=== PATIENT | female | born 1960 | race Caucasian/White ===

== ENCOUNTER 2021-07-17 22:10 | Inpatient (IN) ==
[2021-07-17] MEDS ORDERED: 0.9 % Sodium Chloride 1,000 ML IVC ONE (23:26)
[2021-07-18] MEDS ORDERED: Morphine Sulfate 2 MG/ML SYRINGE SQ ONE ×3 (02:40→06:55)
[2021-07-18] MEDS ORDERED: Lidocaine -MPF 2% 5 ML VIAL ONE (03:58)
[2021-07-18] MEDS ORDERED: 0.9 % Sodium Chloride 1,000 ML ONE ×2 (04:40→12:33)
[2021-07-18 04:43] LABS: Alanine Aminotransferase 17 Units/L (7-52); Albumin 3.4 g/dL (3.5-5.7); Albumin/Globulin Ratio 0.8 (1.1-2.2); Alkaline Phosphatase 131 Units/L (34-104); Aspartate Amino Transferase 25 Units/L (13-39); BUN/Creatinine Ratio 18 (6-26); Bilirubin,Direct 0.1 mg/dL (0.0-0.2); Bilirubin,Indirect 0.5 mg/dL (0.0-1.0); Bilirubin,Total 0.6 mg/dL (0.3-1.0); Blood Urea Nitrogen 15 mg/dL (6-20); Calcium 9.6 mg/dL (8.6-10.3); Carbon Dioxide 23 mEq/L (23-29); Chloride 103 mEq/L (98-107); Globulin 4.3 g/dL (2.4-3.5); Glucose 118 mg/dL (70-105); Osmolality,Calculated 284 (280-300); Potassium 3.8 mEq/L (3.5-5.1); Sodium 136 mEq/L (136-145); Total Protein 7.7 g/dL (6.4-8.9); eGFR For African Americans > 60 (> 60); eGFR For Non-African Americans > 60 (> 60)
[2021-07-18 05:05] LABS: Eosinophils % 0.6 %; Immature Granulocytes % 0.4 % (0-4)
[2021-07-18 05:07] LABS: Basophils # 0.1 K/mcL (0.0-0.2); Basophils % 0.6 %; Eosinophils # 0.1 K/mcL (0.0-0.6); Hematocrit 46.3 % (35.3-44.9); Hemoglobin 14.2 g/dL (11.5-15.4); Immature Platelets 8.5 % (1.1-6.1); Lymphocytes # 2.6 K/mcL (0.6-4.6); Lymphocytes % 18.4 %; Mean Corpuscular HGB Conc 30.7 g/dL (31.6-35.5); Mean Corpuscular Hemoglobin 23.9 pg (28.0-33.3); Mean Corpuscular Volume 77.8 fL (83.0-100.0); Mean Platelet Volume 12.8 fL (9.4-12.4); Monocytes # 1.2 K/mcL (0.0-1.3); Monocytes % 8.6 %; Platelet Count 212 K/mcL (140-400); Red Blood Count 5.95 M/mcL (3.82-4.97); Segmented Neutrophils % 71.4 %
[2021-07-18] MEDS ORDERED: Ondansetron 4 MG/2 ML VIAL IM ONE (06:05)
[2021-07-18] MEDS ORDERED: Clindamycin 600 MG/50 ML 600 MG/50 ML IV.SOLN IVPB STA (08:07)
[2021-07-18] MEDS ORDERED: Acetaminophen 325 MG TABLET PO PRN (08:50)
[2021-07-18] MEDS ORDERED: Naloxone 0.4 MG/ML INJ IVP PRN (08:50)
[2021-07-18] MEDS ORDERED: Ringers Solution, Lactated 1,000 ML IVC SCH ×2 (09:00→11:30)
[2021-07-18 10:12] LABS: Influenza A PCR Negative (Negative); Influenza B PCR Negative (Negative); Resp. Syncytial Virus PCR Negative (Negative); SARS-CoV-2 by PCR (In House) Negative (Negative)
[2021-07-18] MEDS ORDERED: Vancomycin 1,500 MG/265 ML IV.SOLN IVPB SCH (12:00)
[2021-07-18] MEDS: Chlorhexidine Rinse 15 ML MOUTHWASH MM SCH ×2 (12:35→19:24)
[2021-07-18] MEDS: *HR* OxyCODONE Immed Rel 5 MG TABLET PO PRN ×2 (12:35→19:42)
[2021-07-18] MEDS: Lactobacillus 1 EACH CAP.SPRINK PO SCH ×2 (12:35→19:24)
[2021-07-18] MEDS ORDERED: Vancomycin 1,750 MG/517.5 ML IV.SOLN IVPB SCH (13:00)
[2021-07-18] MEDS: Piperacillin/Tazobactam 3.375 GM in 0.9 % Sodium Chloride Mini Bag 100 ML IVPB SCH ×2 (13:03→19:22)
[2021-07-18] MEDS: 0.9 % Sodium Chloride 1,000 ML IVC SCH ×2 (13:04→22:47)
[2021-07-18] MEDS: *HR* Promethazine 25 MG/ML VIAL IM PRN (13:07)
[2021-07-18] MEDS: Vancomycin 1,750 MG/517.5 ML IV.SOLN IVPB SCH (14:20)
[2021-07-18] MEDS: *HR* HYDROcodone/Acet 5/325 mg TABLET PO PRN (15:40)
[2021-07-18] MEDS: Ipratropium/Albuterol Neb 3 ML IH SCH ×2 (15:56→21:03)
[2021-07-18] MEDS: Ondansetron 4 MG/2 ML VIAL IVP PRN (19:43)
[2021-07-18] MEDS: *HR* Enoxaparin 40 MG/0.4 ML SYRINGE SQ SCH (20:38)
[2021-07-18] MEDS: Budesonide/Formoterol 80/4.5 1 PUFF INH IH SCH (21:05)
[2021-07-19] MEDS: Vancomycin 1,750 MG/517.5 ML IV.SOLN IVPB SCH ×2 (03:09→15:10)
[2021-07-19] MEDS: *HR* HYDROcodone/Acet 5/325 mg TABLET PO PRN ×3 (03:41→16:18)
[2021-07-19] MEDS: Ipratropium/Albuterol Neb 3 ML IH SCH ×4 (03:49→20:08)
[2021-07-19 05:19] LABS: Basophils # 0.1 K/mcL (0.0-0.2); Basophils % 1.2 %; Eosinophils # 0.6 K/mcL (0.0-0.6); Eosinophils % 6.5 %; Hematocrit 36.9 % (35.3-44.9); Immature Granulocytes % 0.2 % (0-4); Immature Platelets 8.3 % (1.1-6.1); Lymphocytes # 2.1 K/mcL (0.6-4.6); Lymphocytes % 24.8 %; Mean Corpuscular HGB Conc 29.8 g/dL (31.6-35.5); Mean Corpuscular Hemoglobin 23.5 pg (28.0-33.3); Mean Corpuscular Volume 78.8 fL (83.0-100.0); Mean Platelet Volume 12.3 fL (9.4-12.4); Monocytes # 0.7 K/mcL (0.0-1.3); Monocytes % 8.2 %; Neutrophils # 5.1 K/mcL (1.6-8.9); Platelet Count 146 K/mcL (140-400); Red Blood Count 4.68 M/mcL (3.82-4.97); Red Cell Distribution Width 16.1 % (11.5-14.5); Segmented Neutrophils % 59.1 %; White Blood Count 8.6 K/mcL (4.3-11.1)
[2021-07-19 05:24] LABS: INR 1.2; Prothrombin Time 13.5 Seconds (9.4-12.1)
[2021-07-19 05:31] LABS: Alanine Aminotransferase 17 Units/L (7-52); Albumin 3.2 g/dL (3.5-5.7); Albumin/Globulin Ratio 0.8 (1.1-2.2); Alkaline Phosphatase 105 Units/L (34-104); Aspartate Amino Transferase 21 Units/L (13-39); BUN/Creatinine Ratio 19 (6-26); Bilirubin,Total 0.5 mg/dL (0.3-1.0); Blood Urea Nitrogen 19 mg/dL (6-20); Carbon Dioxide 23 mEq/L (23-29); Chloride 108 mEq/L (98-107); Globulin 3.9 g/dL (2.4-3.5); Glucose 84 mg/dL (70-105); Magnesium 1.7 mg/dL (1.6-2.6); Osmolality,Calculated 291 (280-300); Phosphorous 2.9 mg/dL (2.7-4.5); Potassium 3.3 mEq/L (3.5-5.1); Sodium 140 mEq/L (136-145); Total Protein 7.1 g/dL (6.4-8.9); eGFR For African Americans > 60 (> 60); eGFR For Non-African Americans 57 (> 60)
[2021-07-19] MEDS: Piperacillin/Tazobactam 3.375 GM in 0.9 % Sodium Chloride Mini Bag 100 ML IVPB SCH ×3 (06:09→19:33)
[2021-07-19] MEDS: *HR* OxyCODONE Immed Rel 5 MG TABLET PO PRN ×3 (06:14→19:35)
[2021-07-19] MEDS: Budesonide/Formoterol 80/4.5 1 PUFF INH IH SCH ×2 (07:33→20:09)
[2021-07-19] MEDS: Chlorhexidine Rinse 15 ML MOUTHWASH MM SCH ×2 (10:06→19:34)
[2021-07-19] MEDS: Lactobacillus 1 EACH CAP.SPRINK PO SCH ×2 (10:07→19:34)
[2021-07-19] MEDS: *HR* Enoxaparin 40 MG/0.4 ML SYRINGE SQ SCH ×2 (10:07→19:34)
[2021-07-19] MEDS: *HR* Promethazine 25 MG/ML VIAL IM PRN ×2 (10:12→18:48)
[2021-07-19] MEDS: Ondansetron 4 MG/2 ML VIAL IVP PRN (13:27)
[2021-07-19] MEDS ORDERED: Sennosides 8.6 MG TABLET PO PRN (14:22)
[2021-07-19] MEDS: ALPRAZolam 1 MG TABLET PO SCH ×2 (15:38→19:34)
[2021-07-19] MEDS: lisinopriL 10 MG TABLET PO SCH (19:39)
[2021-07-19] MEDS ORDERED: Acetaminophen/Butalbital/CaffeineTABLET PO PRN (20:45)
[2021-07-19] MEDS ORDERED: Cyanocobalamin (B-12) 1,000 MCG/ML VIAL SQ SCH (21:00)
[2021-07-20] MEDS: Piperacillin/Tazobactam 3.375 GM in 0.9 % Sodium Chloride Mini Bag 100 ML IVPB SCH ×3 (03:57→22:19)
[2021-07-20] MEDS: *HR* HYDROcodone/Acet 5/325 mg TABLET PO PRN ×2 (04:01→10:32)
[2021-07-20] MEDS: Ipratropium/Albuterol Neb 3 ML IH SCH ×4 (04:04→21:34)
[2021-07-20] MEDS: Budesonide/Formoterol 80/4.5 1 PUFF INH IH SCH ×2 (07:43→21:34)
[2021-07-20] MEDS: Aspirin 81 MG TAB.CHEW PO SCH (07:54)
[2021-07-20] MEDS: Lactobacillus 1 EACH CAP.SPRINK PO SCH ×2 (07:54→22:20)
[2021-07-20] MEDS: Chlorhexidine Rinse 15 ML MOUTHWASH MM SCH ×2 (07:54→22:21)
[2021-07-20] MEDS: lisinopriL 10 MG TABLET PO SCH ×2 (07:54→22:20)
[2021-07-20] MEDS: *HR* Enoxaparin 40 MG/0.4 ML SYRINGE SQ SCH ×2 (07:54→22:20)
[2021-07-20] MEDS: ALPRAZolam 1 MG TABLET PO SCH ×3 (07:54→22:20)
[2021-07-20] MEDS ORDERED: Isovue-370 500 ML BOTTLE IVP ONE (09:52)
[2021-07-20] MEDS: *HR* OxyCODONE Immed Rel 5 MG TABLET PO PRN ×2 (11:39→19:21)
[2021-07-20 15:35] LABS: Adenovirus Not Detected (Not Detect); Bordetella Pertussis Not Detected (Not Detect); Chlamydophila pneumoniae Not Detected (Not Detect); Coronavirus 229E Not Detected (Not Detect); Coronavirus HKU1 Not Detected (Not Detect); Coronavirus NL63 Not Detected (Not Detect); Coronavirus OC43 Not Detected (Not Detect); Human Metapneumovirus Not Detected (Not Detect); Human Rhinovirus/Enterovirus Not Detected (Not Detect); Influenza A Subtype 2009 H1 Not Detected (Not Detect); Influenza B Not Detected (Not Detect); Mycoplasma pneumoniae Not Detected (Not Detect); Parainfluenza Virus 1 Not Detected (Not Detect); Parainfluenza Virus 2 Not Detected (Not Detect); Parainfluenza Virus 3 Not Detected (Not Detect); Parainfluenza Virus 4 Not Detected (Not Detect); Respiratory Syncytial Virus Not Detected (Not Detect); SARS-CoV-2 Not Detected (Not Detect)
[2021-07-20] MEDS ORDERED: Vancomycin 1,250 MG/262.5 ML IV.SOLN IVPB SCH (16:00)
[2021-07-20 16:38] LABS: Basophils # 0.1 K/mcL (0.0-0.2); Eosinophils # 0.5 K/mcL (0.0-0.6); Eosinophils % 7.9 %; Hematocrit 32.2 % (35.3-44.9); Hemoglobin 9.5 g/dL (11.5-15.4); Immature Granulocytes % 0.3 % (0-4); Immature Platelets 6.3 % (1.1-6.1); Lymphocytes # 1.8 K/mcL (0.6-4.6); Lymphocytes % 30.3 %; Mean Corpuscular HGB Conc 29.5 g/dL (31.6-35.5); Mean Corpuscular Hemoglobin 23.6 pg (28.0-33.3); Mean Corpuscular Volume 79.9 fL (83.0-100.0); Mean Platelet Volume 12.4 fL (9.4-12.4); Monocytes # 0.6 K/mcL (0.0-1.3); Monocytes % 9.9 %; Platelet Count 128 K/mcL (140-400); Red Blood Count 4.03 M/mcL (3.82-4.97); Red Cell Distribution Width 16.2 % (11.5-14.5); Segmented Neutrophils % 50.6 %
[2021-07-20 16:58] LABS: BUN/Creatinine Ratio 14 (6-26); Blood Urea Nitrogen 14 mg/dL (6-20); Calcium 9.4 mg/dL (8.6-10.3); Carbon Dioxide 25 mEq/L (23-29); Chloride 109 mEq/L (98-107); Glucose 93 mg/dL (70-105); Magnesium 1.7 mg/dL (1.6-2.6); Osmolality,Calculated 290 (280-300); Phosphorous 2.8 mg/dL (2.7-4.5); Potassium 3.8 mEq/L (3.5-5.1); Sodium 140 mEq/L (136-145); eGFR For African Americans > 60 (> 60); eGFR For Non-African Americans 55 (> 60)
[2021-07-20] MEDS: *HR* Promethazine 25 MG/ML VIAL IM PRN (19:20)
[2021-07-21] MEDS: Ipratropium/Albuterol Neb 3 ML IH SCH ×4 (03:26→21:52)
[2021-07-21] MEDS: Piperacillin/Tazobactam 3.375 GM in 0.9 % Sodium Chloride Mini Bag 100 ML IVPB SCH ×3 (04:14→19:57)
[2021-07-21 06:20] LABS: Mean Corpuscular Volume 78.4 fL (83.0-100.0)
[2021-07-21 06:21] LABS: Basophils # 0.1 K/mcL (0.0-0.2); Eosinophils # 0.5 K/mcL (0.0-0.6); Hematocrit 30.8 % (35.3-44.9); Hemoglobin 9.2 g/dL (11.5-15.4); Immature Granulocytes % 0.2 % (0-4); Immature Platelets 7.3 % (1.1-6.1); Lymphocytes # 1.9 K/mcL (0.6-4.6); Lymphocytes % 36.2 %; Mean Corpuscular HGB Conc 29.9 g/dL (31.6-35.5); Mean Corpuscular Hemoglobin 23.4 pg (28.0-33.3); Mean Platelet Volume 12.3 fL (9.4-12.4); Monocytes # 0.5 K/mcL (0.0-1.3); Neutrophils # 2.3 K/mcL (1.6-8.9); Platelet Count 120 K/mcL (140-400); Red Blood Count 3.93 M/mcL (3.82-4.97); Red Cell Distribution Width 16.3 % (11.5-14.5); Segmented Neutrophils % 43.6 %; White Blood Count 5.2 K/mcL (4.3-11.1)
[2021-07-21 06:32] LABS: Calcium 9.2 mg/dL (8.6-10.3); Magnesium 1.7 mg/dL (1.6-2.6); Phosphorous 3.8 mg/dL (2.7-4.5); Potassium 3.6 mEq/L (3.5-5.1)
[2021-07-21] MEDS: Chlorhexidine Rinse 15 ML MOUTHWASH MM SCH ×2 (07:25→19:58)
[2021-07-21] MEDS: Lactobacillus 1 EACH CAP.SPRINK PO SCH ×2 (07:26→19:58)
[2021-07-21] MEDS: *HR* HYDROcodone/Acet 5/325 mg TABLET PO PRN ×3 (07:27→19:59)
[2021-07-21] MEDS: ALPRAZolam 1 MG TABLET PO SCH (07:27)
[2021-07-21] MEDS: lisinopriL 10 MG TABLET PO SCH ×2 (07:27→19:59)
[2021-07-21] MEDS: Aspirin 81 MG TAB.CHEW PO SCH (07:27)
[2021-07-21] MEDS: *HR* Enoxaparin 40 MG/0.4 ML SYRINGE SQ SCH ×2 (07:27→19:58)
[2021-07-21] MEDS: Ondansetron 4 MG/2 ML VIAL IVP PRN ×2 (07:35→17:32)
[2021-07-21] MEDS: Budesonide/Formoterol 80/4.5 1 PUFF INH IH SCH ×2 (10:10→21:52)
[2021-07-21] MEDS: Vancomycin 1,250 MG/262.5 ML IV.SOLN IVPB SCH (15:47)
[2021-07-21] MEDS: ALPRAZolam 0.25 MG TABLET PO SCH (19:58)
[2021-07-22] MEDS: *HR* OxyCODONE Immed Rel 5 MG TABLET PO PRN ×2 (00:03→11:24)
[2021-07-22] MEDS: Piperacillin/Tazobactam 3.375 GM in 0.9 % Sodium Chloride Mini Bag 100 ML IVPB SCH ×3 (03:19→20:03)
[2021-07-22] MEDS: Vancomycin 1,250 MG/262.5 ML IV.SOLN IVPB SCH ×2 (03:20→15:45)
[2021-07-22] MEDS: Ipratropium/Albuterol Neb 3 ML IH SCH ×2 (03:35→10:46)
[2021-07-22] MEDS: *HR* HYDROcodone/Acet 5/325 mg TABLET PO PRN ×3 (07:21→21:56)
[2021-07-22] MEDS: lisinopriL 10 MG TABLET PO SCH ×2 (08:24→20:06)
[2021-07-22] MEDS: Aspirin 81 MG TAB.CHEW PO SCH (08:24)
[2021-07-22] MEDS: ALPRAZolam 0.25 MG TABLET PO SCH ×2 (08:24→20:05)
[2021-07-22] MEDS: *HR* Enoxaparin 40 MG/0.4 ML SYRINGE SQ SCH ×2 (08:24→20:05)
[2021-07-22] MEDS: Chlorhexidine Rinse 15 ML MOUTHWASH MM SCH ×2 (08:24→20:03)
[2021-07-22] MEDS: Lactobacillus 1 EACH CAP.SPRINK PO SCH ×2 (08:24→20:06)
[2021-07-22] MEDS: Budesonide/Formoterol 80/4.5 1 PUFF INH IH SCH ×2 (10:46→20:10)
[2021-07-22] MEDS: Ondansetron 4 MG/2 ML VIAL IVP PRN ×2 (11:24→20:14)
[2021-07-22] MEDS ORDERED: Ipratropium/Albuterol Neb 3 ML IH PRN (15:17)
[2021-07-22] MEDS: tiZANidine 4 MG TABLET PO SCH ×2 (16:19→20:06)
[2021-07-22] MEDS ORDERED: Gadolinium Contrast Agent (WT Based) IV PRN (16:39)
[2021-07-22] MEDS ORDERED: GADOBUTROL 30 MMOL/30 ML VIAL IVP ONE (17:26)
[2021-07-22] MEDS: Erythromycin OPTH Oint RIGHT EYE SCH ×2 (18:00→21:01)
[2021-07-22] MEDS: Melatonin 3 MG TABLET PO SCH (20:06)
[2021-07-22] MEDS: Pregabalin 50 MG CAPSULE PO SCH (20:06)
[2021-07-22] MEDS: Donnatal Liq 10 ML UDC PO SCH (21:54)
[2021-07-23] MEDS: Piperacillin/Tazobactam 3.375 GM in 0.9 % Sodium Chloride Mini Bag 100 ML IVPB SCH ×3 (04:02→21:09)
[2021-07-23] MEDS: Budesonide/Formoterol 80/4.5 1 PUFF INH IH SCH ×2 (07:42→19:59)
[2021-07-23] MEDS: amLODIPine 5 MG TABLET PO SCH (08:39)
[2021-07-23] MEDS: Aspirin 81 MG TAB.CHEW PO SCH (08:39)
[2021-07-23] MEDS: tiZANidine 4 MG TABLET PO SCH ×3 (08:39→21:12)
[2021-07-23] MEDS: ALPRAZolam 0.25 MG TABLET PO SCH ×2 (08:39→21:12)
[2021-07-23] MEDS: Lactobacillus 1 EACH CAP.SPRINK PO SCH ×2 (08:39→21:13)
[2021-07-23] MEDS: Pregabalin 50 MG CAPSULE PO SCH ×2 (08:39→21:12)
[2021-07-23] MEDS: Multivitamin Liquid 15 ML UDC PO SCH ×2 (08:39→08:50)
[2021-07-23] MEDS: lisinopriL 10 MG TABLET PO SCH ×2 (08:39→21:13)
[2021-07-23] MEDS: Erythromycin OPTH Oint RIGHT EYE SCH ×2 (08:40→15:46)
[2021-07-23] MEDS: Chlorhexidine Rinse 15 ML MOUTHWASH MM SCH ×2 (08:41→21:11)
[2021-07-23] MEDS: *HR* Enoxaparin 40 MG/0.4 ML SYRINGE SQ SCH ×2 (08:42→21:12)
[2021-07-23] MEDS: *HR* OxyCODONE Immed Rel 5 MG TABLET PO PRN ×2 (09:58→16:57)
[2021-07-23] MEDS: Donnatal Liq 10 ML UDC PO SCH ×2 (12:50→23:33)
[2021-07-23] MEDS: *HR* Promethazine 25 MG/ML VIAL IM PRN (12:54)
[2021-07-23] MEDS ORDERED: Fluconazole 100 MG TABLET PO ONE (14:31)
[2021-07-23] MEDS: Artificial Tears SOLN 15 ML BOTTLE RIGHT EYE SCH ×2 (16:57→21:11)
[2021-07-23] MEDS: Melatonin 3 MG TABLET PO SCH (21:12)
[2021-07-23] MEDS: *HR* HYDROcodone/Acet 5/325 mg TABLET PO PRN (23:33)
[2021-07-24] MEDS: Artificial Tears SOLN 15 ML BOTTLE RIGHT EYE SCH ×4 (00:10→14:21)
[2021-07-24] MEDS: Erythromycin OPTH Oint RIGHT EYE SCH ×3 (00:11→14:21)
[2021-07-24] MEDS: Piperacillin/Tazobactam 3.375 GM in 0.9 % Sodium Chloride Mini Bag 100 ML IVPB SCH ×2 (04:02→11:50)
[2021-07-24] MEDS: Budesonide/Formoterol 80/4.5 1 PUFF INH IH SCH (07:51)
[2021-07-24] MEDS: Aspirin 81 MG TAB.CHEW PO SCH (08:00)
[2021-07-24] MEDS: tiZANidine 4 MG TABLET PO SCH ×2 (08:00→14:22)
[2021-07-24] MEDS: lisinopriL 10 MG TABLET PO SCH (08:00)
[2021-07-24] MEDS: ALPRAZolam 0.25 MG TABLET PO SCH (08:00)
[2021-07-24] MEDS: *HR* HYDROcodone/Acet 5/325 mg TABLET PO PRN ×2 (08:00→14:22)
[2021-07-24] MEDS: Pregabalin 50 MG CAPSULE PO SCH (08:00)
[2021-07-24] MEDS: Lactobacillus 1 EACH CAP.SPRINK PO SCH (08:01)
[2021-07-24] MEDS: amLODIPine 5 MG TABLET PO SCH (08:01)
[2021-07-24] MEDS: Chlorhexidine Rinse 15 ML MOUTHWASH MM SCH (08:02)
[2021-07-24] MEDS: Donnatal Liq 10 ML UDC PO SCH (08:02)
[2021-07-24] MEDS: Multivitamin Liquid 15 ML UDC PO SCH (08:02)
[2021-07-24] MEDS: *HR* Enoxaparin 40 MG/0.4 ML SYRINGE SQ SCH (08:03)
[2021-07-24] MEDS ORDERED: Fluconazole 100 MG TABLET PO SCH (09:00)
[2021-07-24] MEDS ORDERED: Vitamin B Complex/Vit C/Vit E 1 EACH TABLET PO SCH (09:00)
[2021-07-24 09:11] LABS: Basophils # 0.1 K/mcL (0.0-0.2); Basophils % 0.6 %; Eosinophils # 0.7 K/mcL (0.0-0.6); Eosinophils % 9.5 %; Hematocrit 35.9 % (35.3-44.9); Hemoglobin 10.8 g/dL (11.5-15.4); Lymphocytes # 2.4 K/mcL (0.6-4.6); Lymphocytes % 30.5 %; Mean Corpuscular HGB Conc 30.1 g/dL (31.6-35.5); Mean Corpuscular Hemoglobin 23.5 pg (28.0-33.3); Mean Corpuscular Volume 78.2 fL (83.0-100.0); Mean Platelet Volume 12.4 fL (9.4-12.4); Monocytes # 0.6 K/mcL (0.0-1.3); Monocytes % 7.4 %; Platelet Count 155 K/mcL (140-400); Red Blood Count 4.59 M/mcL (3.82-4.97); Red Cell Distribution Width 16.9 % (11.5-14.5); White Blood Count 7.8 K/mcL (4.3-11.1)
[2021-07-24 10:25] LABS: BUN/Creatinine Ratio 13 (6-26); Blood Urea Nitrogen 15 mg/dL (6-20); Calcium 8.9 mg/dL (8.6-10.3); Carbon Dioxide 22 mEq/L (23-29); Chloride 109 mEq/L (98-107); Glucose 98 mg/dL (70-105); Magnesium 1.9 mg/dL (1.6-2.6); Osmolality,Calculated 287 (280-300); Potassium 4.6 mEq/L (3.5-5.1); Sodium 138 mEq/L (136-145); eGFR For African Americans 56 (> 60); eGFR For Non-African Americans 46 (> 60)
[2021-07-24] MEDS: *HR* OxyCODONE Immed Rel 5 MG TABLET PO PRN ×2 (11:50→17:55)
[2021-07-24 16:02] VITALS: BP 101/56; PULSE 102; TEMP 98.2; O2SAT 90
[2021-07-24] MEDS ORDERED: Doxycycline 100 MG CAPSULE PO SCH (21:00)
== END 2021-07-24 18:31 | DRG 115 ==
LOC: EMEROOARM 22:10 → 2ANU 22:10 → SUATTDRO 07-18 09:24 → 2ANU 07-18 11:22
PROVIDERS: ADMIT Internal Medicine; ATTEND Internal Medicine